=== PATIENT | male | born 1965 | race Hispanic/Latino ===

== ENCOUNTER 2018-04-23 08:51 | Day surgery (SDC) | payer OTHER ==
[~2018-04-23] VITALS: Ht 172.7 cm; Wt 78.0 kg
[~2018-04-23 08:51] MED LIST: ADVIL,NUPRIN,M200 MG PO; ASPIR 8181 M1 PO; LISINOPRIL5 MG PO; MOTRIN600 MG PO; PRAVASTATIN SOD40 MG PO; TRAMADOL HCL50 MG PO
[2018-04-23 09:29] VITALS: BP 129/76
[2018-04-23] MEDS ORDERED: NORCO 5/3251 TABLET PO (12:29)
[2018-04-23 13:45] VITALS: BP 122/72
[2018-04-23 15:00] VITALS: BP 117/72
== END 2018-04-23 15:03 | disposition home or self-care (01) ==
LOC: SDC 08:51
PROC: 0YU50JZ Supplement Right Inguinal Region with Synthetic Substitute, Open Approach (ICD-10-PCS; principal; 2018-04-23)
DX: K40.90 Unilateral inguinal hernia, without obstruction or gangrene, not specified as recurrent (principal); D17.6 Benign lipomatous neoplasm of spermatic cord; I10 Essential (primary) hypertension; I44.2 Atrioventricular block, complete; E78.00 Pure hypercholesterolemia, unspecified; Z79.82 Long term (current) use of aspirin; Z95.0 Presence of cardiac pacemaker
CPT/HCPCS: C1781; J0690; J1100; J1170; J1885; J2250; J2405; J2710; J3010; J7643